=== PATIENT | male | born 2000 ===

== ENCOUNTER 2022-02-03 09:53 | Emergency (ER) | payer SELFPAY ==
[2022-02-03] MEDS ORDERED: diphenhydrAMINE 50 MG/ML VIAL ONE (10:09)
[2022-02-03] MEDS ORDERED: methylPREDNISolone Sod Succinate 125 MG/2 ML INJ ONE (10:10)
[2022-02-03] MEDS ORDERED: FAMOTIDINE 20 MG/2 ML INJ IV ONE ×2 (10:10→11:00)
[2022-02-03] MEDS ORDERED: methylPREDNISolone Sod Succinate 125 MG/2 ML INJ IV ONE (11:00)
[2022-02-03] MEDS ORDERED: diphenhydrAMINE 50 MG/ML VIAL IV ONE (11:00)
--- NOTE | 2022-02-03 12:44 | Emergency Department Report ---
ED Allergic Reaction HPI - General Chief complaint: Allergic Reaction Stated complaint: ALLERGIC REACTION Source: patient Mode of arrival: Ambulatory Limitations: Language Barrier - History of Present Illness Initial Comments: Patient is a 21-year-old male with no past medical history presents to the ED with complaint of acute onset persistent diffuse itchy erythematous maculopapular urticarial rashes for the last 4 hours after being bitten by unknown insect 4 hours ago. Patient speaking through speech and language tutor states that he was laying down outside his house when he felt a bite on his back and his chest and thereafter developed diffuse burning sensation throughout his body with diffuse itchy erythematous maculopapular urticarial rashes. Patient denies swollen lips and tongue, dysphagia, dysphonia, hoarseness, nasal and sinus congestion, cough, chest pain or shortness of breath, wheezing, nausea and vomiting, palpitations, abdominal pain or diarrhea, fever and chills. MD Complaint: allergic reaction, hives -: Sudden, hour(s) (4) Exposure: insect bite Symptoms: rash, itching. denies: facial swelling, lip swelling, difficulty swallowing, difficulty breathing, orolingual swelling, hoarseness, syncopy, dizziness, nausea, vomiting, abdominal pain Severity: severe Treatment Prior to Arrival: none Previous Allergy History: none - Related Data Previous Rx's Medication Instructions Recorded Last Taken Type Famotidine [Pepcid] 20 mg PO BID #40 tablet 02/03/22 Unknown Rx Prednisone [predniSONE 10 mg 10 mg PO .TAPER #21 02/03/22 Unknown Rx (6-Day Pack, 21 Tabs)] diphenhydrAMINE [Benadryl CAP] 25 mg PO Q6HR PRN #40 capsule 02/03/22 Unknown Rx Allergies Allergy/AdvReac Type Severity Reaction Status Date / Time No Known Allergies Allergy Unverified 02/03/22 10:08 ED Review of Systems ROS: Stated complaint: ALLERGIC REACTION Other details as noted in HPI Constitutional: denies: chills, fever Eyes: denies: eye pain, eye discharge, vision change ENT: denies: ear pain, throat pain Respiratory: denies: cough, shortness of breath, wheezing Cardiovascular: denies: chest pain, palpitations Endocrine: no symptoms reported Gastrointestinal: denies: abdominal pain, nausea, diarrhea Genitourinary: denies: urgency, dysuria Musculoskeletal: denies: back pain, joint swelling, arthralgia Skin: rash (Diffuse itchy erythematous maculopapular urticarial rashes), change in color, pruritus. denies: lesions Neurological: denies: headache, weakness, paresthesias Psychiatric: denies: anxiety, depression Hematological/Lymphatic: denies: easy bleeding, easy bruising ED Past Medical Hx - Medications Home Medications: Home Medications Medication Instructions Recorded Confirmed Last Taken Type Famotidine [Pepcid] 20 mg PO BID #40 tablet 02/03/22 Unknown Rx Prednisone [predniSONE 10 mg 10 mg PO .TAPER #21 02/03/22 Unknown Rx (6-Day Pack, 21 Tabs)] diphenhydrAMINE [Benadryl CAP] 25 mg PO Q6HR PRN #40 capsule 02/03/22 Unknown Rx ED Physical Exam - General Limitations: Language Barrier General appearance: alert, in no apparent distress - Head Head exam: Present: atraumatic, normocephalic, normal inspection - Eye Eye exam: Present: normal appearance, PERRL, EOMI Pupils: Present: normal accommodation - ENT ENT exam: Present: normal exam, normal orophraynx, mucous membranes moist, TM's normal bilaterally, normal external ear exam - Neck Neck exam: Present: normal inspection, full ROM. Absent: tenderness - Respiratory Respiratory exam: Present: normal lung sounds bilaterally. Absent: respiratory distress, wheezes, rales, rhonchi, stridor, chest wall tenderness, decreased breath sounds, prolonged expiratory - Cardiovascular Cardiovascular Exam: Present: normal rhythm, tachycardia, normal heart sounds. Absent: systolic murmur, diastolic murmur, rubs, gallop - GI/Abdominal GI/Abdominal exam: Present: soft, normal bowel sounds. Absent: tenderness, guarding, rebound, hyperactive bowel sounds, hypoactive bowel sounds, organomegaly, mass - Extremities Exam Extremities exam: Present: normal inspection, full ROM, normal capillary refill. Absent: tenderness - Back Exam Back exam: Present: normal inspection, full ROM. Absent: tenderness, CVA tenderness (R), CVA tenderness (L), muscle spasm, paraspinal tenderness, vertebral tenderness - Neurological Exam Neurological exam: Present: alert, oriented X3, CN II-XII intact, normal gait, reflexes normal - Psychiatric Psychiatric exam: Present: normal affect, normal mood - Skin Skin exam: Present: warm, dry, intact, rash (Diffuse itchy erythematous maculopapular urticarial rashes), erythema, urticaria. Absent: normal color ED Course Vital Signs 02/03/22 02/03/22 10:00 10:40 Temperature 98.7 F Pulse Rate 136 H 84 Respiratory 25 H 16 Rate Blood Pressure 118/70 110/68 [Left] O2 Sat by Pulse 96 100 Oximetry ED Medical Decision Making - Medical Decision Making This is a 21-year-old male with no past medical history presents to the ED with complaint of acute onset persistent diffuse itchy erythematous maculopapular urticarial rashes for the last 4 hours after being bitten by unknown insect 4 hours ago. Patient speaking through speech and language tutor states that he was laying down outside his house when he felt a bite on his back and his chest and thereafter developed diffuse burning sensation throughout his body with diffuse itchy erythematous maculopapular urticarial rashes. In the ED, patient is alert and oriented x3 and is not in any distress, patient is however tachycardic and tachypneic and anxious in triage. Patient was treated in the ED with Solu-Medrol 125 mg IV x1, Benadryl 25 mg IV x1 and Pepcid 20 mg IV x1. Patient was observed in the ED and on reevaluation, the itching and hives resolved. Patient is hemodynamically stable and was discharged home on medications for acute allergic reaction including oral prednisone, Benadryl and Pepcid prescriptions. Patient was advised to follow-up with his primary care physician in 5 to 7 days for reevaluation or return to the ED immediately if symptoms get worse. - Differential Diagnosis Acute allergic reaction; acute urticaria; anaphylaxis; Critical care attestation.: If time is entered above; I have spent that time in minutes in the direct care of this critically ill patient, excluding procedure time. ED Disposition Clinical Impression: Acute urticaria, Allergy to insect bites and stings, Itching with irritation Acute allergic reaction Qualifiers: Encounter type: initial encounter Qualified Code(s): T78.40XA - Allergy, unspecified, initial encounter Disposition: HOME / SELF CARE / HOMELESS Is pt being admited?: No Does the pt Need Aspirin: No Condition: Stable Instructions: Allergies, Adult, [id number], Rash, Adult, [id number], Hives, [id number] Additional Instructions: Chancellor los medicamentos con alimentos, chivo muchos lquidos, shannon un seguimiento con vogel mdico de atencin primaria en 7 a 10 jacobsen para flor reevaluacin. Regrese al servicio de urgencias inmediatamente si los sntomas empeoran. Prescriptions: diphenhydrAMINE [Benadryl CAP] 25 mg PO Q6HR PRN #40 capsule PRN Reason: Itching Famotidine [Pepcid] 20 mg PO BID #40 tablet Prednisone [predniSONE 10 mg (6-Day Pack, 21 Tabs)] 10 mg PO .TAPER #21 Referrals: [facility] [Provider Group] - 3-5 Days Time of Disposition: 12:57 Print Language: WOLOF
[2022-02-03 15:49] VITALS: BP 108/60
== END 2022-02-03 15:49 | disposition home or self-care (01) ==
LOC: ED 09:53
DX: T63.441A Toxic effect of venom of bees, accidental (unintentional), initial encounter (principal); T78.40XA Allergy, unspecified, initial encounter; L50.9 Urticaria, unspecified; L29.9 Pruritus, unspecified; Z79.899 Other long term (current) drug therapy; Y92.89 Other specified places as the place of occurrence of the external cause
CPT/HCPCS: 96374; 96375; 99283; J1200; J2930; J3490